=== PATIENT | female | born 1975 | race Caucasian/White ===

== ENCOUNTER 2016-09-24 21:39 | Emergency (ER) | payer SELFPAY ==
[2016-09-24 22:05] VITALS: BP 116/76
--- NOTE | 2016-09-24 22:43 | UC ---
Dane Villa Rebecca, scribed for Casimiro Dowd MD on 09/24/16 at 2207 . Upper Extremity HPI - HPI Summary HPI Summary: Pt is a 40 y/o F who presents to [facility] c/o bilateral hand pain and swelling s/p injury 2 days ago. While at work at the [employer] a piece of exercise equipment fell on her L wrist and R index finger, crushing them. Pain began immediately after injury and is currently severe, ranked 8/10. Additionally notes numbness in the L hand. Sx aggravated by use, alleviated by nothing. Denies elbow, hip and knee pain. Is not on a blood thinner. - History of Current Complaint Chief Complaint: UCUpperExtremity Stated Complaint: BILATERAL HAND INJURIES (WC) Time Seen by Provider: 09/24/16 21:53 Hx Obtained From: Patient Hx Last Menstrual Period: 09/15/16 Onset/Duration: Lasting Days - 2 days, Still Present Severity Currently: Severe Pain Intensity: 8 Pain Scale Used: 0-10 Numeric Location Of Pain: Is Discrete @ - Bilateral wrist Alleviating Factor(s): Nothing Associated Signs And Symptoms: Positive: Swelling, Numbness/Tingling - Allergies/Home Medications Allergies/Adverse Reactions: Allergies Allergy/AdvReac Type Severity Reaction Status Date / Time Fish Allergy Allergy Severe Swelling Verified 09/24/16 21:53 Of Face,Lips,& Throat Latex Allergy Intermediate Hives Verified 09/24/16 21:53 Shellfish Allergy Allergy Intermediate Hives Verified 09/24/16 21:53 seafood Allergy Hives Uncoded 09/24/16 21:53 Home Medications: Home Medications Amoxicillin PO (*) [Amoxicillin 500 MG CAP*] 500 mg PO DAILY 09/24/16 [History Confirmed 09/24/16] PMH/Surg Hx/FS Hx/Imm Hx Previously Healthy: Yes - Surgical History Surgical History: Yes Surgery Procedure, Year, and Place: GALLSTONES REMOVED 2004, TUBAL , OVARIAN CYST REMOVED, LOSS OF . - Family History Known Family History: Positive: Diabetes, Other - breast and lung CA - Social History Alcohol Use: None Substance Use Type: None Smoking Status (MU): Never Smoked Tobacco - Immunization History Most Recent Influenza Vaccination: not this season Most Recent Tetanus Shot: unknown Review of Systems Constitutional: Negative Skin: Negative Eyes: Negative ENT: Negative Respiratory: Negative Cardiovascular: Negative Gastrointestinal: Negative Genitourinary: Negative Motor: Negative Neurovascular: Negative Musculoskeletal: Arthralgia - See Comments Neurological: Numbness - See comments Psychological: Negative All Other Systems Reviewed And Are Negative: Yes - Comments Additional Review of Systems Comments: POSITIVE: Bilateral hand pain and swelling; numbness in the L hand. Sx aggravated by use, alleviated by nothing. NEGATIVE: Elbow, hip and knee pain. Physical Exam Triage Information Reviewed: Yes Vital Signs: Initial Vital Signs Temp 99.2 F 09/24/16 21:48 Pulse 79 09/24/16 21:48 Resp 16 09/24/16 21:48 BP 116/76 09/24/16 21:48 Pulse Ox 100 09/24/16 21:48 Vital Signs Reviewed: Yes - Additional Comments The patient is well-nourished in no acute distress and in no acute pain. The skin is warm and dry and skin color reflects adequate perfusion. Respiratory: Chest is non-tender. Lungs are clear to auscultation and breath sounds are symmetrical and equal. Cardiovascular: Hear is regular rate and rhythm. There is no murmur or rub auscultated. There is no peripheral edema and pulses are symmetrical and equal. Musculoskeletal: The L radius hurts. There is ecchymosis and point tenderness at the PIP joint of the R hand with FROM. There is no laxity of her PIP joint. COllateral ligaments exact. Able to flex and extend. Skin is intact. Good capillary refill. Good pulses. Neurological: Patient is alert and oriented to person, place and time. The patient has symmetrical motor strength in all four extremities. Cranial nerves are grossly intact. Deep tendon reflexes are symmetrical and equal in all four extremities. Psychiatric: The patient has an appropriate affect and does not exhibit any anxiety or depression. Diagnostics - Radiology Right Hand XR Xray Interpretation: No Acute Changes - No obvious fracture Radiology Interpretation Completed By: ED Physician Wrist XR Xray Interpretation: No Acute Changes - No obvious fracture Radiology Interpretation Completed By: ED Physician Upper Extremity Course/Dx - Course Course Of Treatment: Pt is a 40 y/o F who presents to [facility] c/o bilateral hand pain and swelling s/p injury 2 days ago. While at work at the [employer] a piece of exercise equipment fell on her L wrist and R index finger, crushing them. Pain began immediately after injury and is currently severe, ranked 8/10. Additionally notes numbness in the L hand. Sx aggravated by use. Denies elbow, hip and knee pain. Is not on a blood thinner. Right hand and L wrist XR reveal no obvious fracture. She will be D/C to home with Dx of Contusion, left wrist and sprain, right index finger. Put an alumafoam splint on the right index finger and she is neurovascular intact. She understands and agrees. - Differential Dx/Diagnosis Differential Diagnosis/HQI/PQRI: Contusion, Fracture (Closed), Hematoma Provider Diagnoses: Contusion, left wrist. Sprain, right index finger Discharge - Discharge Plan Condition: Stable Disposition: HOME Patient Education Materials: Contusion in Adults (ED), Finger Sprain (ED) Forms: *Work Release Referrals: Vince Wray MD [Primary Care Provider] - 3 Days The documentation as recorded by the Dane gutierrez Rebecca accurately reflects the service I personally performed and the decisions made by me, Casimiro Dowd MD.
--- NOTE | 2016-09-25 07:30 | RAD ---
INDICATION: Left wrist injury. TECHNIQUE: 3 views of the left wrist were obtained. FINDINGS: No fracture is seen. Joint spaces appear maintained. IMPRESSION: NO EVIDENCE FOR FRACTURE.
--- NOTE | 2016-09-25 07:33 | RAD ---
INDICATION: Right hand injury. TECHNIQUE: 4 views of the right hand were obtained. FINDINGS: The bones are in normal alignment. No fracture is seen. Joint spaces appear maintained. IMPRESSION: NO EVIDENCE FOR FRACTURE.
== END 2016-09-24 22:41 | disposition home or self-care (01) ==
LOC: UCCORT 21:39
DX: S63.610A Unspecified sprain of right index finger, initial encounter (principal); S60.212A Contusion of left wrist, initial encounter; W23.1XXA Caught, crushed, jammed, or pinched between stationary objects, initial encounter; Z91.040 Latex allergy status; Z91.013 Allergy to seafood
CPT/HCPCS: 99212; G0463

== ENCOUNTER 2017-04-16 18:57 | Emergency (ER) | payer OTHER ==
[2017-04-16 20:21] VITALS: BP 114/67
--- NOTE | 2017-04-16 20:59 | UC ---
Nausea/Vomiting/Diarrhea HPI - HPI Summary HPI Summary: Pt present with 3 days of intermittent n/v/d. Pt states has lower abd cramping improved with BM. No blood, black stools Pt with fevers responsive to APAP - last dose 3am. vomiting x 1 today + fluids po little solids + sick contact with same no dyuria, hematuria. mild GARCÍA Pt states today feeling better than yesterday Pt's medications reviewed this visit - History of Current Complaint Chief Complaint: UCAbdominalPain Stated Complaint: VOMITING, ACHES, DIARRHEA Time Seen by Provider: 04/16/17 20:23 Hx Obtained From: Patient, Family/Terrazzo Roller Hx Last Menstrual Period: 04/13/17 Onset/Duration: Gradual Onset Pain Intensity: 7 Location: Diffuse Character: Cramping Aggravating Factor(s): Food Alleviating Factor(s): OTC Analgesics Nausea/Vomiting Presence: Nauseated, Vomiting - Allergies/Home Medications Allergies/Adverse Reactions: Allergies Allergy/AdvReac Type Severity Reaction Status Date / Time latex Allergy Intermediate Hives Verified 04/16/17 20:03 fish Allergy Intermediate Swelling Uncoded 04/16/17 20:03 Of Face,Lips,& Throat seafood Allergy Hives Uncoded 04/16/17 20:03 shellfish Allergy Hives Uncoded 04/16/17 20:03 Home Medications: Home Medications B12 2,500 mcg PO SEE INSTRUCTIONS 04/16/17 [History Confirmed 04/16/17] Coconut Oil [Coconut Oil Organic] 1,000 mg PO SEE INSTRUCTIONS 04/16/17 [ History Confirmed 04/16/17] Hair,Skin,Nails 1 dose PO SEE INSTRUCTIONS 04/16/17 [History Confirmed 04/16/17] Ibuprofen TAB* [Motrin TAB* 400 MG] 400 mg PO Q12H PRN 04/16/17 [History Confirmed 04/16/17] Lysine,Vit C,Echinacea,Licoric 1 dose PO SEE INSTRUCTIONS 04/16/17 [History Confirmed 04/16/17] Tylenol Cold And Flu 1 dose PO SEE INSTRUCTIONS PRN 04/16/17 [History Confirmed 04/16/17] PMH/Surg Hx/FS Hx/Imm Hx Previously Healthy: Yes - Surgical History Surgical History: Yes Surgery Procedure, Year, and Place: GALLSTONES REMOVED 2004, TUBAL , OVARIAN CYST REMOVED, LOSS OF . - Family History Known Family History: Positive: Diabetes, Other - breast and lung CA - Social History Occupation: Employed Full-time Lives: With Family Alcohol Use: None Substance Use Type: None Smoking Status (MU): Never Smoked Tobacco - Immunization History Most Recent Influenza Vaccination: not this season Most Recent Tetanus Shot: unknown Review of Systems Constitutional: Fever, Fatigue Skin: Negative Eyes: Negative ENT: Negative Respiratory: Negative Cardiovascular: Negative Gastrointestinal: Abdominal Pain, Vomiting, Diarrhea, Nausea Genitourinary: Negative Motor: Negative Neurovascular: Negative Musculoskeletal: Negative Neurological: Negative Psychological: Negative All Other Systems Reviewed And Are Negative: Yes Physical Exam Triage Information Reviewed: Yes Appearance: Well-Appearing, No Pain Distress, Well-Nourished, Other: - tired appearin, no pain Vital Signs: Initial Vital Signs Temp 99.4 F 04/16/17 20:11 Pulse 78 04/16/17 20:11 Resp 18 04/16/17 20:11 BP 114/67 04/16/17 20:11 Pulse Ox 100 04/16/17 20:11 Eye Exam: Normal Eyes: Positive: Conjunctiva Clear ENT: Positive: Hearing grossly normal, Other - TM x clear mmmoist, lips pasty Dental Exam: Normal Neck exam: Normal Neck: Positive: Supple, Nontender Respiratory Exam: Normal Respiratory: Positive: Chest non-tender, Lungs clear, Normal breath sounds, No respiratory distress Cardiovascular Exam: Normal Cardiovascular: Positive: RRR, No Murmur Abdomen Description: Positive: No Organomegaly, Soft. Negative: Nontender - mild diffuse, no guarding, no rebound, Distended, Guarding Musculoskeletal Exam: Normal Neurological Exam: Normal Psychological Exam: Normal Skin Exam: Normal Naus/Vom/Diarrhea Course/Dx - Course Course Of Treatment: Pt with 4 days n/v/d, crampy abd pain. Pt with stable vs, mild dehdrted exam, mild abd pain. will check urine for ketone, check flu. supportive care. d/w pt s/s for return, ED eval. recommend clears to bland. pt comfortable and in agreement plan - Differential Dx/Diagnosis Provider Diagnoses: vomiting and diarrhea Condition At Discharge: Stable Discharge - Discharge Plan Condition: Stable Disposition: HOME Patient Education Materials: Acute Nausea and Vomiting (ED), Acute Diarrhea (ED ) Forms: *Gen. Provider Communication, *Work Release Referrals: Vince Wray MD [Primary Care Provider] - Additional Instructions: - Okay to alternate ibuprofen (Advil, Motrin) and Tylenol every 3 hours for pain or fever. Take with food. Do NOT take for more than 4-5 days. - Stay well hydrate. Drink plenty of non alcoholic, non caffeinated beverages. For the first 6 hours, eat and drink clears (water, ashley tess, soup broth, jello, popsicles, Gatorade). If you tolerate this okay, add bland foods such as dry toast, scrambled eggs, crackers. Wait until you are feeling better for 24 hours before eating spicy food, acidic food, tomato based food, fried food. - These infections are spread by oral secretions. Do not share eating or drinking utensils. Frequent hand washing is important. Clean items that may get your secretions on them such as cell phones, ipads, computer mouse, television remotes -Get plenty of restful sleep - If you develop increasing abdominal pain, uncontrolled vomiting or fever, or ANY other questions or concerns - contact your doctor, go to the emergency department or return with questions or concerns
[2017-04-16] MEDS ORDERED: Acetaminophen TAB* 325 MG PO ONE (21:17)
== END 2017-04-16 21:32 | disposition home or self-care (01) ==
LOC: UCCORT 18:57
DX: R11.2 Nausea with vomiting, unspecified (principal); R19.7 Diarrhea, unspecified; R50.9 Fever, unspecified; R53.83 Other fatigue; R10.84 Generalized abdominal pain; Z91.040 Latex allergy status; Z91.013 Allergy to seafood
CPT/HCPCS: 81003; 87502; 99212; A9270-GY; G0463

== ENCOUNTER 2017-05-10 13:33 | Emergency (ER) | payer OTHER ==
[2017-05-10 14:04] VITALS: BP 125/78
--- NOTE | 2017-05-10 14:36 | UC ---
Abdominal Pain Female HPI - HPI Summary HPI Summary: 41 yo female wtih periumbilical adb painlunch today. pain and vomiting immediately after eating n/v x 2 no f/c also injured right pelvis and foot 2 days ago twisted ankle and fell - History of Current Complaint Chief Complaint: UCGI Stated Complaint: VOMITING,ABD PAIN Time Seen by Provider: 05/10/17 14:13 Hx Obtained From: Patient Hx Last Menstrual Period: 05/09/17 Onset/Duration: Gradual Onset, Lasting Hours, Lasting Days Severity Initially: Severe Severity Currently: Moderate Pain Intensity: 8 Pain Scale Used: 0-10 Numeric Location: Other - sudarshan umbilical Aggravating Factor(s): Food Alleviating Factor(s): Vomiting Associated Signs and Symptoms: Positive: Nausea, Vomiting Allergies/Adverse Reactions: Allergies Allergy/AdvReac Type Severity Reaction Status Date / Time latex Allergy Intermediate Hives Verified 05/10/17 14:00 fish Allergy Intermediate Swelling Uncoded 05/10/17 14:00 Of Face,Lips,& Throat seafood Allergy Hives Uncoded 05/10/17 14:00 shellfish Allergy Hives Uncoded 05/10/17 14:00 PMH/Surg Hx/FS Hx/Imm Hx Previously Healthy: Yes - Surgical History Surgical History: Yes Surgery Procedure, Year, and Place: GALLSTONES REMOVED 2004, TUBAL , OVARIAN CYST REMOVED, LOSS OF . - Family History Known Family History: Positive: Diabetes, Other - breast and lung CA - Social History Alcohol Use: None Substance Use Type: None Smoking Status (MU): Never Smoked Tobacco - Immunization History Most Recent Influenza Vaccination: not this season Most Recent Tetanus Shot: unknown Review of Systems Constitutional: Negative Skin: Negative Eyes: Negative ENT: Negative Respiratory: Negative Cardiovascular: Negative Gastrointestinal: Abdominal Pain, Vomiting, Nausea Genitourinary: Negative Motor: Negative Neurovascular: Negative Musculoskeletal: Arthralgia Neurological: Negative Psychological: Negative Is Patient Immunocompromised?: No All Other Systems Reviewed And Are Negative: Yes Physical Exam Triage Information Reviewed: Yes Appearance: Well-Appearing, No Pain Distress, Well-Nourished Vital Signs: Initial Vital Signs Temp 98 F 05/10/17 13:55 Pulse 87 05/10/17 13:55 Resp 16 05/10/17 13:55 BP 125/78 05/10/17 13:55 Pulse Ox 100 05/10/17 13:55 Vital Signs Reviewed: Yes Eyes: Positive: Conjunctiva Clear ENT: Positive: Pharyngeal erythema, Nasal congestion, Nasal drainage, Muffled voice, Uvula midline Neck exam: Normal Neck: Positive: Supple, Nontender Respiratory: Positive: Lungs clear, Normal breath sounds, No respiratory distress, No accessory muscle use Cardiovascular: Positive: RRR, No Murmur Abdomen Description: Positive: No Organomegaly, Soft. Negative: Nontender - tender epigastrium, CVA Tenderness (R), CVA Tenderness (L) Bowel Sounds: Positive: Present Musculoskeletal: Positive: ROM Intact, No Edema Neurological: Positive: Alert Psychological Exam: Normal Skin Exam: Normal Diagnostics - Radiology No standard instances Xray Interpretation: No Acute Changes - right foot and pelvis (-) Radiology Interpretation Completed By: Radiologist Abd Pain Female Course/Dx - Differential Dx/Diagnosis Provider Diagnoses: gastritis. right foot sprain. right pelvis contusion Discharge - Discharge Plan Condition: Stable Disposition: HOME Referrals: Vince Wray MD [Primary Care Provider] -
--- NOTE | 2017-05-10 15:03 | RAD ---
HISTORY: right foot injury COMPARISONS: July 12, 2015 VIEWS: 3, Frontal, lateral, and oblique views of the right foot FINDINGS: BONE DENSITY: Normal. BONES: There is no displaced fracture. JOINTS: There is no arthropathy. ALIGNMENT: There is no dislocation. SOFT TISSUES: Unremarkable. OTHER FINDINGS: None. IMPRESSION: NO ACUTE OSSEOUS INJURY. IF SYMPTOMS PERSIST, RECOMMEND REPEAT IMAGING.
--- NOTE | 2017-05-10 15:05 | RAD ---
HISTORY: Right pelvic pain, injury COMPARISONS: None VIEWS: 1, Single frontal view of the pelvis FINDINGS: BONE DENSITY: Normal. BONES: There is no displaced fracture. JOINTS: There is no arthropathy. ALIGNMENT: There is no dislocation. SOFT TISSUES: Unremarkable. OTHER FINDINGS: Surgical clips are noted in the pelvis.. IMPRESSION: NO ACUTE OSSEOUS INJURY. IF SYMPTOMS PERSIST, RECOMMEND REPEAT IMAGING.
[2017-05-10] MEDS ORDERED: Ondansetron ODT TAB* 4 MG PO ONE (15:12)
== END 2017-05-10 15:33 | disposition home or self-care (01) ==
LOC: UCCORT 13:33
DX: K29.70 Gastritis, unspecified, without bleeding (principal); S93.601A Unspecified sprain of right foot, initial encounter; S30.0XXA Contusion of lower back and pelvis, initial encounter; W19.XXXA Unspecified fall, initial encounter; Y93.9 Activity, unspecified; Y92.9 Unspecified place or not applicable; Z91.040 Latex allergy status; Z91.013 Allergy to seafood
CPT/HCPCS: 72170; 99212; A9270-GY; G0463

== ENCOUNTER 2017-06-22 17:51 | Emergency (ER) | payer OTHER ==
[2017-06-22] MEDS ORDERED: methylPREDNISolone 125 MG* 2 ML VIAL ONE (18:01)
[2017-06-22 18:03] VITALS: BP 115/74
[2017-06-22] MEDS ORDERED: methylPREDNISolone 125 MG* 2 ML VIAL IM ONE (18:04)
--- NOTE | 2017-06-22 18:29 | UC ---
Allergic Reaction HPI - HPI Summary HPI Summary: Pr presents with c/o "scratchy throat" after spilling shellfish based soup on her shirt ~ 3 hours ago. 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 Pt took 25 mg PO benadryl two hours prior ot arrival. Pt is sleepy but arousable during exam. Denies difficulty breathing, lip swelling or SOB. - History of Current Complaint Chief Complaint: UCAllergicReaction Stated Complaint: POSSIBLE ALLERGIC REACTION Time Seen by Provider: 06/22/17 17:52 Hx Obtained From: Patient Hx Last Menstrual Period: 05/09/17 ?: No Onset/Duration: Gradual Onset Severity Initially: Mild Severity Currently: Mild Pain Intensity: 0 Character: Pruritus Alleviating Factor(s): Antihistamines Associated Signs And Symptoms: Positive: Other: - throat irritation - Related Hx Possible Reaction To: Food - Allergies/Home Medications Allergies/Adverse Reactions: Allergies Allergy/AdvReac Type Severity Reaction Status Date / Time latex Allergy Intermediate Hives Verified 06/22/17 18:03 fish Allergy Intermediate Swelling Uncoded 06/22/17 18:03 Of Face,Lips,& Throat seafood Allergy Hives Uncoded 06/22/17 18:03 shellfish Allergy Hives Uncoded 06/22/17 18:03 Home Medications: Home Medications diPHENhydraMINE PO* [Benadryl PO 25 MG TAB*] 25 mg PO Q6H PRN 06/22/17 [History Confirmed 06/22/17] PMH/Surg Hx/FS Hx/Imm Hx Previously Healthy: Yes - Surgical History Surgical History: Yes Surgery Procedure, Year, and Place: GALLSTONES REMOVED 2004, TUBAL , OVARIAN CYST REMOVED, LOSS OF . - Family History Known Family History: Positive: Diabetes, Other - breast and lung CA - Social History Occupation: Employed Full-time Lives: With Family Alcohol Use: None Substance Use Type: None Smoking Status (MU): Never Smoked Tobacco Have You Smoked in the Last Year: No - Immunization History Most Recent Influenza Vaccination: not this season Most Recent Tetanus Shot: unknown Review of Systems Constitutional: Negative Skin: Rash Eyes: Negative ENT: Sore Throat Respiratory: Negative Cardiovascular: Negative Gastrointestinal: Negative Genitourinary: Negative Motor: Negative Neurovascular: Negative Musculoskeletal: Negative Neurological: Negative Psychological: Negative Is Patient Immunocompromised?: No All Other Systems Reviewed And Are Negative: Yes Physical Exam Triage Information Reviewed: Yes Appearance: Well-Appearing, Other: - sleepy during exam Vital Signs: Initial Vital Signs Temp 98.1 F 06/22/17 17:57 Pulse 82 06/22/17 17:57 Resp 15 06/22/17 17:57 BP 115/74 06/22/17 17:57 Pulse Ox 100 06/22/17 17:57 Vital Signs Reviewed: Yes Eye Exam: Normal ENT Exam: Normal ENT: Positive: Pharynx normal, Other - nho angioedema noted Neck exam: Normal Respiratory Exam: Normal Respiratory: Positive: Lungs clear Cardiovascular Exam: Normal Musculoskeletal Exam: Normal Neurological Exam: Normal Psychological Exam: Normal Skin Exam: Normal Allergic Reaction Course/Dx - Differential Dx/Diagnosis Differential Diagnosis/HQI/PQRI: Anaphylaxis, Local Allergic Reaction, Urticaria Provider Diagnoses: generalized allergic reaction Discharge - Sign-Out/Discharge Documenting (check all that apply): Discharge - Discharge Plan Condition: Stable Disposition: HOME Patient Education Materials: General Allergic Reaction (ED) Referrals: Vince Wray MD [Primary Care Provider] - - Billing Disposition and Condition Condition: STABLE Disposition: HOME
== END 2017-06-22 18:50 | disposition home or self-care (01) ==
LOC: UCCORT 17:51
DX: T78.40XA Allergy, unspecified, initial encounter (principal)
CPT/HCPCS: 96372; 99211; G0463; J2930

== ENCOUNTER 2018-03-20 13:57 | Emergency (ER) | payer SELFPAY ==
[2018-03-20 14:57] VITALS: BP 116/73
--- NOTE | 2018-03-20 15:11 | UC ---
Throat Pain/Nasal Lito HPI - HPI Summary HPI Summary: Pt with sinus congestiion x 5 days. Pt has been using mucinex and nasal sterid. Pt has now develop epistaxis x 4.No fever, chills No ear pain. + PND. facial pressure, dental pressure. no cough, sob, cp Pt's medications reviewed this visit. - History of Current Complaint Chief Complaint: UCRespiratory Stated Complaint: SINUSES Time Seen by Provider: 03/20/18 14:58 Hx Obtained From: Patient Hx Last Menstrual Period: 03/08/18 Pain Intensity: 0 - Allergies/Home Medications Allergies/Adverse Reactions: Allergies Allergy/AdvReac Type Severity Reaction Status Date / Time latex Allergy Intermediate Hives Verified 03/20/18 14:47 fish Allergy Intermediate Swelling Uncoded 03/20/18 14:47 Of Face,Lips,& Throat seafood Allergy Hives Uncoded 03/20/18 14:47 shellfish Allergy Hives Uncoded 03/20/18 14:47 Home Medications: Home Medications Organic Vitamins 1 tab PO 03/20/18 [History] Triamcinolone NASAL SPRAY* [Nasacort AQ Nasal [place]*] 1 puff NASAL 03/20/18 [ History] PMH/Surg Hx/FS Hx/Imm Hx Previously Healthy: Yes - Surgical History Surgical History: Yes Surgery Procedure, Year, and Place: GALLSTONES REMOVED 2004, TUBAL , OVARIAN CYST REMOVED, LOSS OF . - Family History Known Family History: Positive: Diabetes, Other - breast and lung CA, Non- Contributory - Social History Alcohol Use: None Substance Use Type: None Smoking Status (MU): Never Smoked Tobacco Have You Smoked in the Last Year: No - Immunization History Most Recent Influenza Vaccination: not this season Most Recent Tetanus Shot: unknown Review of Systems All Other Systems Reviewed And Are Negative: Yes Constitutional: Positive: Negative, Fatigue ENT: Positive: Nasal Discharge, Sinus Congestion Physical Exam - Summary Physical Exam Summary: Vital Signs Reviewed: Yes A+Ox3, no distress Eyes: Conjunctiva Clear, JESSICA. EOM intact and full ENT: Hearing grossly normal scant fluid right TM, no erythema left TM wnl turbinates inflammed and boggy. + dried blood right septum. + boggy + PND + TTP right max sinuses, , mmoist, uvula midline, no exudate, no erythema Neck: Positive: Supple Respiratory: Positive: No respiratory distress, No accessory muscle use + CTA throughout no w/r Cardiovascular: RRR nl s1, s2 no m/r CBT <2 sec abd soft + BS nt/nd no guarding, no distension Musculoskeletal Exam: MORE x 4 without difficulty Strength Intact, ROM Intact Neurological: Positive: Alert, + sensation throughout Psychological: Positive: Normal Response To Family Skin: Positive: no rash, no ecchymosis Triage Information Reviewed: Yes Vital Signs: Initial Vital Signs Temp 99.2 F 03/20/18 14:51 Pulse 80 03/20/18 14:51 Resp 18 03/20/18 14:51 BP 116/73 03/20/18 14:51 Pulse Ox 100 03/20/18 14:51 Throat Pain/Nasal Course/Dx - Course Course Of Treatment: sinus pressure x 5 days, max pressure pain and green secretions with intermittend epistaxis. on exam, VSS. exam c/w rhinosinusitis. hydrate. abx. motrin/apap. humidify air. recommend d/c steroid nasal spray - saline ok. return precautions - Differential Dx/Diagnosis Provider Diagnosis: Acute rhinosinusitis Discharge - Sign-Out/Discharge Documenting (check all that apply): Patient Departure All imaging exams completed and their final reports reviewed: No Studies - Discharge Plan Condition: Stable Disposition: HOME Prescriptions: Amoxicillin PO (*) [Amoxicillin 500 MG CAP*] 500 mg PO TID #30 cap Fluconazole [Diflucan 150 MG (NF)] 150 mg PO ONCE PRN #1 tab PRN Reason: vaginal yeast infection Patient Education Materials: Rhinosinusitis (ED) Forms: *Work Release Referrals: Tessa Boss MD [Primary Care Provider] - Additional Instructions: - Stay well hydrated. Drink plenty of non-alcoholic, non-caffinated beverages. - Alternate ibuprofen (Advil, Motrin) 600mg and Tylenol every 3 hours for pain or fever. Take with food. Do NOT take for more than 4-5 days. - These infections are spread by secretions - do NOT share eating or drinking utensils - clean items you share with other people such as cell phones, computer mouse, TV remote, computer tablets,etc. Once you have been antibiotics for 2 days, change your toothbrush and your pillowcase. - get plenty of restful sleep - humidify the air in the room where you sleep - boil water, run a hot steam shower, vaporizer, cups of water by heat register - okay to take over the counter decongestant and cough medication - stop using nasal spray as this is drying your nasal passages and contributing to your nosebleeds - you have been given a 1 time dose for diflucan - okay to use if you develop a vaginal yeast infection - contact your doctor or return with questions or concerns - Billing Disposition and Condition Condition: STABLE Disposition: Home
== END 2018-03-20 15:34 | disposition home or self-care (01) ==
LOC: UCCORT 13:57
DX: J01.90 Acute sinusitis, unspecified (principal); Z91.040 Latex allergy status; Z91.013 Allergy to seafood
CPT/HCPCS: 99211; G0463

== ENCOUNTER 2018-04-11 21:15 | Emergency (ER) | payer OTHER ==
[2018-04-11 21:37] VITALS: BP 132/77
--- NOTE | 2018-04-11 21:44 | ED ---
Upper Extremity Pain - HPI Summary HPI Summary: 42 yr old with pain in the right shoulder for about a week. 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 Repeated movements, and this occurred on the Mar, and the following day she had increased pain in the right shoulder and feels a pull in the supraspinatus muscle area right shoulder. Pain is moderate, and worse with attempted overhead movements. She has limited forward flexion and abduction of the right shoulder. No weakness or numbness in the right hand. - History of Current Complaint Chief Complaint: UCUpperExtremity Stated Complaint: RIGHT SHOULDER INJURY Time Seen by Provider: 04/11/18 21:29 Hx Last Menstrual Period: 04/04/17 - Allergies/Home Medications Allergies/Adverse Reactions: Allergies Allergy/AdvReac Type Severity Reaction Status Date / Time latex Allergy Intermediate Hives Verified 04/11/18 21:27 fish Allergy Intermediate Swelling Uncoded 04/11/18 21:27 Of Face,Lips,& Throat seafood Allergy Hives Uncoded 04/11/18 21:27 shellfish Allergy Hives Uncoded 04/11/18 21:27 Home Medications: Home Medications Loratadine 10 mg PO DAILY PRN 04/11/18 [History Confirmed 04/11/18] PMH/Surg Hx/FS Hx/Imm Hx - Surgical History Surgery Procedure, Year, and Place: GALLSTONES REMOVED 2004, TUBAL , OVARIAN CYST REMOVED, LOSS OF . Infectious Disease History: No Infectious Disease History: Denies: Traveled Outside the [place] in Last 30 Days - Family History Known Family History: Positive: Diabetes, Other - breast and lung CA, Non- Contributory - Social History Alcohol Use: None Substance Use Type: Reports: None Smoking Status (MU): Never Smoked Tobacco Have You Smoked in the Last Year: No Review of Systems Constitutional: Negative Positive: Other - right shoulder pain All Other Systems Reviewed And Are Negative: Yes Physical Exam Triage Information Reviewed: Yes Vital Signs On Initial Exam: Initial Vitals Temp Pulse Resp BP Pulse Ox 98.4 F 75 16 132/77 100 04/11/18 21:31 04/11/18 21:31 04/11/18 21:31 04/11/18 21:31 04/11/18 21:31 Vital Signs Reviewed: Yes Appearance: Positive: Well-Appearing, No Pain Distress Skin: Positive: Warm, Skin Color Reflects Adequate Perfusion Head/Face: Positive: Normal Head/Face Inspection Eyes: Positive: EOMI ENT: Positive: Normal ENT inspection Neck: Positive: Supple Respiratory/Lung Sounds: Positive: Other - normal breath sounds. Cardiovascular: Positive: Pulses are Symmetrical in both Upper and Lower Extremities Abdomen Description: Negative: Distended Musculoskeletal: Positive: Other - limited abduction and forward flexion right shoulder with increased pain with these movements. No STS or swelling, or bruising or increased warmth to the right shoulder. No gross deformity. Neurological: Positive: Sensory/Motor Intact, Alert, Oriented to Person Place, Time, CN Intact II-III, Other - neuro vasc intact right hand Psychiatric: Positive: Normal Diagnostics - Vital Signs Vital Signs Temp Pulse Resp BP Pulse Ox 04/11/18 21:31 98.4 F 75 16 132/77 100 - Laboratory Lab Statement: Any lab studies that have been ordered have been reviewed, and results considered in the medical decision making process. - Radiology right shoulder Radiology Interpretation Completed By: ED Physician - nad Course/Dx - Course Course Of Treatment: 42 yr old with likely supraspinatus injury, tendon injury. FU with orthopedic surgery. - Diagnoses Provider Diagnoses: Injury of tendon of rotator cuff Discharge - Sign-Out/Discharge Documenting (check all that apply): Patient Departure All imaging exams completed and their final reports reviewed: No - Discharge Plan Condition: Good Disposition: HOME Patient Education Materials: Rotator Cuff Injury (ED) Forms: *Work Release Referrals: Tessa Boss MD [Primary Care Provider] - - Billing Disposition and Condition Condition: GOOD Disposition: Home
--- NOTE | 2018-04-12 12:44 | UC ---
- Progress Note Progress Note: xray negative. c/w provider assessment "IMPRESSION: NO EVIDENCE OF FRACTURE." Course/Dx - Diagnoses Provider Diagnoses: Injury of tendon of rotator cuff Discharge - Sign-Out/Discharge Documenting (check all that apply): Post-Discharge Follow Up All imaging exams completed and their final reports reviewed: Yes - Discharge Plan Condition: Good Disposition: HOME Patient Education Materials: Rotator Cuff Injury (ED) Forms: *Work Release Referrals: Lopez Larson MD [Medical Doctor] - 2 Days Tessa Boss MD [Primary Care Provider] - - Billing Disposition and Condition Condition: GOOD Disposition: Home
== END 2018-04-11 21:58 | disposition home or self-care (01) ==
LOC: UCCORT 21:15
DX: S46.001A Unspecified injury of muscle(s) and tendon(s) of the rotator cuff of right shoulder, initial encounter (principal); Z91.040 Latex allergy status; Z91.013 Allergy to seafood; X50.0XXA Overexertion from strenuous movement or load, initial encounter; Y93.89 Activity, other specified; Y92.9 Unspecified place or not applicable
CPT/HCPCS: 99211; G0463

== ENCOUNTER 2018-12-29 11:48 | Emergency (ER) | payer OTHER ==
[2018-12-29 13:47] VITALS: BP 110/72
--- NOTE | 2018-12-29 14:50 | ED ---
Respiratory - HPI Summary HPI Summary: 43 yr old with the complaint of sore throat, runny nose, cough, NVD. She got the flu shot last week, and she feels it has given her the flu. No syncope. T max 100. She has had chills. NO abdominal pain. SHe is requesting note for work. - History of Current Complaint Chief Complaint: UCGeneralIllness Stated Complaint: VOMITING DIARRHEA ACHY CHILLS EARS SORE THROAT Time Seen by Provider: 12/29/18 14:16 Pain Intensity: 8 - Allergy/Home Medications Allergies/Adverse Reactions: Allergies Allergy/AdvReac Type Severity Reaction Status Date / Time latex Allergy Intermediate Hives Verified 12/29/18 13:47 fish Allergy Intermediate Swelling Uncoded 12/29/18 13:47 Of Face,Lips,& Throat seafood Allergy Hives Uncoded 12/29/18 13:47 shellfish Allergy Hives Uncoded 12/29/18 13:47 Home Medications: Home Medications NK [No Home Medications Reported] 12/29/18 [History Confirmed 12/29/18] PMH/Surg Hx/FS Hx/Imm Hx - Surgical History Surgery Procedure, Year, and Place: GALLSTONES REMOVED 2004, TUBAL , OVARIAN CYST REMOVED, LOSS OF . Infectious Disease History: No Infectious Disease History: Denies: Traveled Outside the [place] in Last 30 Days - Family History Known Family History: Positive: Diabetes, Other - breast and lung CA, Non- Contributory - Social History Alcohol Use: Occasionally Substance Use Type: Reports: None Smoking Status (MU): Never Smoked Tobacco Have You Smoked in the Last Year: No Review of Systems Positive: Chills Positive: Sore Throat, Ear Ache, Nasal Discharge Positive: Cough Positive: Vomiting, Diarrhea, Nausea Positive: Myalgia All Other Systems Reviewed And Are Negative: Yes Physical Exam Triage Information Reviewed: Yes Vital Signs On Initial Exam: Initial Vitals Temp Pulse Resp BP Pulse Ox 99.2 F 89 16 110/72 98 12/29/18 13:38 12/29/18 13:38 12/29/18 13:38 12/29/18 13:38 12/29/18 13:38 Vital Signs Reviewed: Yes Appearance: Positive: Well-Appearing, No Pain Distress Skin: Positive: Warm, Skin Color Reflects Adequate Perfusion Head/Face: Positive: Normal Head/Face Inspection Eyes: Positive: EOMI ENT: Positive: Pharynx normal, Nasal congestion, TMs normal Neck: Positive: Nontender Respiratory/Lung Sounds: Positive: Clear to Auscultation, Breath Sounds Present Cardiovascular: Positive: RRR. Negative: Murmur Abdomen Description: Negative: Distended Musculoskeletal: Positive: Strength/ROM Intact Neurological: Positive: Sensory/Motor Intact, Alert, Oriented to Person Place, Time, CN Intact II-III, Normal Gait, Speech Normal Psychiatric: Positive: Normal Diagnostics - Vital Signs Vital Signs Temp Pulse Resp BP Pulse Ox 12/29/18 13:38 99.2 F 89 16 110/72 98 - Laboratory Lab Statement: Any lab studies that have been ordered have been reviewed, and results considered in the medical decision making process. Disposition - Course Course Of Treatment: 43 yr old with URI and GI symptoms. Rapid flu neg. DC home. - Diagnoses Provider Diagnoses: Upper respiratory infection, Gastroenteritis Discharge ED - Sign-Out/Discharge Documenting (check all that apply): Patient Departure All imaging exams completed and their final reports reviewed: No Studies - Discharge Plan Condition: Good Disposition: HOME Patient Education Materials: Gastroenteritis (ED), Upper Respiratory Infection (ED) Forms: *Work Release Referrals: Tessa Boss MD [Primary Care Provider] - - Billing Disposition and Condition Condition: GOOD Disposition: Home
[2018-12-29 14:52] LABS: Influenza A Molecular NEGATIVE (Negative); Influenza B Molecular NEGATIVE (Negative)
== END 2018-12-29 15:05 | disposition home or self-care (01) ==
LOC: UCCORT 11:48
DX: J06.9 Acute upper respiratory infection, unspecified (principal); K52.9 Noninfective gastroenteritis and colitis, unspecified; Z91.040 Latex allergy status; Z91.013 Allergy to seafood
CPT/HCPCS: 99211; G0463

== ENCOUNTER 2019-02-28 14:04 | Emergency (ER) | payer OTHER ==
--- OUTSIDE RECORDS SUMMARY | 2019-02-28 15:29 | XMS REPORT | Continuity of Care Document ---
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 Tessa Boss MD, PHD Onset: 2018 Eruption Tessa Boss MD, PHD Onset: 09/24/2018 Gastro-esophageal reflux disease with Tessa Boss MD, PHD Onset: 2018 esophagitis 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 Boss MD, PHD Onset: foot Sciatica Tessa Boss MD, PHD Onset: 09/24/2018 Low back pain Tessa Boss MD, PHD Onset: 09/24/2018 Amenorrhea Tessa Boss MD, PHD Onset: 09/24/2018 Social History Type Date Description Comments Sex Unknown ETOH Use Denies alcohol use Tobacco Use Start: Unknown Patient denies history of smoking Smoking Status Reviewed: 01/13/19 Patient denies history of smoking Allergies, Adverse Reactions, Alerts Active Allergies Reaction Severity Comments Date Latex 05/20/2008 Seafood 05/20/2008 Fish 05/20/2008 Medications Active Medications SIG Qnty Indications Ordering Date Provider Clobetasol Propionate apply to affected 15gm L23.89 Karyn 01/13/2019 E area of hands and MD Tessa, 0.05% Cream forearm twice a PHD day as needed Gummies/Dha 2 tab by mouth 180units N91.1 Ursa, 01/13/2019 & Folic Acid every day MD Tessa, 0.4-32.5mg PHD Chewtabs Fluconazole 1 by mouth once 1tabs Ursa, 01/13/2019 150mg can repeat in 1 MD Tessa, Tablets week for vaginal PHD itching Keflex 1 cap by mouth 6caps Ursa, 01/12/2019 500mg Capsules twice a day - MD Tessa, start after PHD leaving urine sample please. Vitamin D 2 caps by mouth 180caps N91.1 Ursa, 09/24/2018 2000Unit every day MD Tessa, Capsules PHD Melatonin ER 1 tab by mouth at 90tabs Ursa, 09/24/2018 5mg bedtime as needed MD Tessa, Tablets ER for sleep PHD D3 Maximum Strength 1 cap by mouth 90caps G47.00 Ursa, 08/08/2018 every day with MD Tessa, 5000Unit Capsules food PHD B12 Fast Dissolve 1 tab by mouth 90tabs G47.00 Ursa, 08/08/2018 every day MD Tessa, 5000mcg Tablets PHD Dispers Nac 600 2 cap by mouth 120caps G47.00 Ursa, 08/08/2018 600mg Capsules twice a day MD Tessa, PHD Hydrocortisone apply to affected 59ml L24.0 Ursa, 08/08/2018 2.5% area twice a day MD Tessa, Lotion as needed PHD Famotidine 1 tab by mouth 60tabs K21.0 Ursa, 06/19/2018 40mg Tablets twice a day MD Tessa, before meals as PHD needed Loratadine Take One Tablet 30tabs J30.2 Ursa, 05/15/2018 10mg Tablets By Mouth Every MD Tessa, Morning PHD Cetirizine HCL 1/2-1 by mouth at 90tabs J30.2 Ursa, 05/15/2018 10mg bedtime as needed MD Tessa, Tablets PHD Nasacort Allergy 24HR 2 intranasal 10.800ml J30.2 Ursa, 09/26/2017 every day MD Tessa, 55mcg/Act Aerosol PHD Metronidazole apply to affected 45gm L71.9 Karyn, 08/29/2017 0.75% area every day as MD Tessa, Cream needed PHD One Daily Unknown Green Tea Slim o tablet twice Unknown Tablets daily History Medications Prenata 1 by mouth 90units N91.1 Tessa Boss, 09/24/2018 - 29-1mg Chewtabs every day , PHD 01/13/2019 Trazodone HCL 1-2 tab by 60tabs G47.00 Tessa Boss, 08/08/2018 - 50mg mouth sleep , PHD 09/24/2018 Tablets Bupropion 1 tab by mouth 30tabs F43.21 Tessa Boss, 08/08/2018 - Hydrochloride ER (SR) every day every , PHD 09/12/2018 morning 100mg Tablets ER 12HR Immunizations Description No Information Available Vital Signs Date Vital Result Comment 01/13/2019 4:07pm BP Systolic 126 mmHg BP Diastolic 83 mmHg Body Temperature 97.7 F Heart Rate 76 /min Respiratory Rate 16 /min Height 64 inches 5'4" Weight 136.00 lb BMI (Body Mass Index) 23.3 kg/m2 BSA (Body Surface Area) 1.66 m2 [place] body weight in kilograms 54 kg O2 % BldC Oximetry 100 % 09/24/2018 3:27pm BP Systolic 155 mmHg 130/86 retook after 10 minutes BP Diastolic 104 mmHg 130/86 retook after 10 minutes Body Temperature 98.0 F Heart Rate 90 /min Respiratory Rate 20 /min Height 64 inches 5'4" Weight 164.00 lb BMI (Body Mass Index) 28.1 kg/m2 BSA (Body Surface Area) 1.80 m2 [place] body weight in kilograms 54 kg O2 % BldC Oximetry 98 % Pain Level 0 Results Test Acquired Date Facility Test Result H/L Range Note Rapid Influenza 12/29/2018 [facility] Influenza A NEGATIVE Negative 1 A & B Molecular [phone] Molecular Influenza B Molecular NEGATIVE Negative 1 Sterile Process Tech: [id number] Procedures Date Code Description Status 08/08/2018 37191 Brief Emotional/Behav Assessment W/ Scoring Doc Per Completed [facility] Medical Devices Description No Information Available Encounters Type Date Location Provider Dx Diagnosis Office Visit 01/13/2019 Family [facility] Tessa Boss, L23.89 Allergic contact 3:45p Ion Evans MD, PHD dermatitis due to other agents N76.0 Acute vaginitis R30.0 Dysuria R35.0 Frequency of micturition Office Visit 09/24/2018 3:00p Family Medicine Tessa Boss, R21 Rash and other Ion Evans MD, PHD nonspecific skin eruption I83.002 Varicose veins of unsp lower extremity with ulcer of calf Office Visit 08/08/2018 11:45a Family Medicine Karyn, L24.0 Irritant contact Ion Zarate MD, dermatitis due to PHD detergents G47.00 Insomnia, unspecified F43.21 Adjustment disorder with depressed mood M75.01 Adhesive capsulitis of right shoulder Assessments Date Code Description Provider 01/13/2019 L23.89 Allergic contact dermatitis due to other Tessa Boss MD, PHD agents 01/13/2019 N76.0 Acute vaginitis Tessa Boss MD, PHD 01/13/2019 R30.0 Dysuria Tessa Boss MD, PHD 01/13/2019 R35.0 Frequency of micturition Tessa Boss MD, PHD 09/24/2018 R21 Rash and other nonspecific skin eruption Tessa Boss MD , PHD 09/24/2018 I83.002 Varicose veins of unspecified lower Tessa Boss MD, PHD extremity with ulcer of calf 08/08/2018 L24.0 Irritant contact dermatitis due to Tessa Boss MD, PHD detergents 08/08/2018 G47.00 Insomnia, unspecified Tessa Boss MD, PHD 08/08/2018 F43.21 Adjustment disorder with depressed mood Tessa Boss MD, PHD 08/08/2018 M75.01 Adhesive capsulitis of right shoulder Tessa Boss MD , PHD Plan of Treatment 01/13/2019 - Tessa Boss MD, PHDL23.89 Allergic contact dermatitis due to other agentsNew Medication:Clobetasol Propionate E 0.05 % - apply to affected area of hands and forearm twice a day as neededComments:Avoid any chemicals that flush or burn your skin.N76.0 Acute [id number] DysuriaFollow up:If fever after 3 days of antibiotic, if worsening symptoms call, if symptoms come back after completing antibiotics, or as needed.R35.0 Frequency of micturition Functional Status Description No Information Available Mental Status Description No Information Available Referrals Description No Information Available
--- NOTE | 2019-02-28 15:44 | UC ---
Abdominal Pain Female HPI - HPI Summary HPI Summary: 43 year old female with no PMH, no medications, presents today with ~ 24 hours of nausea, vomiting, diarrhea. Symptoms worse last night, starting to improve. Had to leave work early yesterday due to symptoms. + liquid stools last night. Last emesis ~ noon. Diffuse abdominal pain. + chills, resolving. + weakness currently, + fatigue. - History of Current Complaint Stated Complaint: VOMITTING,DIARRHEA,FEVER Time Seen by Provider: 02/28/19 15:39 Hx Obtained From: Patient Hx Last Menstrual Period: 12/22/18 ?: No Onset/Duration: Sudden Onset, Lasting Days - 1 Timing: Constant Severity Initially: Moderate Severity Currently: Moderate Pain Scale Used: 0-10 Numeric Location: Diffuse - throughout abdomen Character: Aching Associated Signs and Symptoms: Positive: Decreased Appetite, Nausea, Vomiting, Diarrhea Allergies/Adverse Reactions: Allergies Allergy/AdvReac Type Severity Reaction Status Date / Time latex Allergy Intermediate Hives Verified 02/28/19 15:35 fish Allergy Intermediate Swelling Uncoded 02/28/19 15:35 Of Face,Lips,& Throat seafood Allergy Hives Uncoded 02/28/19 15:35 shellfish Allergy Hives Uncoded 02/28/19 15:35 Home Medications: Home Medications Famotidine TAB* [Pepcid 20 MG TAB*] 20 mg PO DAILY 02/28/19 [History Confirmed 02/28/19] Lysine 500 mg PO DAILY 02/28/19 [History Confirmed 02/28/19] PMH/Surg Hx/FS Hx/Imm Hx Previously Healthy: Yes - Surgical History Surgical History: Yes Surgery Procedure, Year, and Place: GALLSTONES REMOVED 2004, TUBAL , OVARIAN CYST REMOVED, LOSS OF . - Family History Known Family History: Positive: Diabetes, Other - breast and lung CA, Non- Contributory - Social History Alcohol Use: Occasionally Substance Use Type: None Smoking Status (MU): Never Smoked Tobacco Have You Smoked in the Last Year: No - Immunization History Most Recent Influenza Vaccination: not this season Most Recent Tetanus Shot: unknown Review of Systems All Other Systems Reviewed And Are Negative: Yes Constitutional: Positive: Chills, Fatigue Skin: Positive: Negative Respiratory: Positive: Negative Gastrointestinal: Positive: Abdominal Pain, Vomiting, Diarrhea, Nausea Musculoskeletal: Positive: Negative Neurological: Positive: Negative Is Patient Immunocompromised?: No Physical Exam Triage Information Reviewed: Yes Appearance: No Pain Distress, Well-Nourished, Ill-Appearing - mild Vital Signs Reviewed: Yes Eyes: Positive: Conjunctiva Clear Respiratory: Positive: Chest non-tender, Lungs clear, Normal breath sounds, No respiratory distress, No accessory muscle use. Negative: Respiratory distress, Crackles, Rhonchi, Stridor, Wheezing Cardiovascular: Positive: No Murmur, Tachycardia - minimal Abdomen Description: Positive: No Organomegaly, Soft, Other: - diffuse tenderness throughout entire abdomen with moderate palpation. Negative: Bruit, CVA Tenderness (R), CVA Tenderness (L), Distended, Guarding, Hepatomegaly, Splenomegaly Musculoskeletal Exam: Normal Psychological Exam: Normal Skin Exam: Normal Abd Pain Female Course/Dx - Course Course Of Treatment: gastroenteritis, likley viral - continue to take small sips of water to prevent dehydration frequently - Zofran as needed for nausea - Begin to introduce food slowly with bland foods first, such as saltine crackers, white bread. Gradually increased as tolerated. yogurt to re- populate gut when tolerated - Return with increased symptom, unable to hold down water, lightheadedness, weakness. - Differential Dx/Diagnosis Provider Diagnosis: Gastroenteritis Discharge ED - Sign-Out/Discharge Documenting (check all that apply): Patient Departure All imaging exams completed and their final reports reviewed: No Studies - Discharge Plan Condition: Good Disposition: HOME Prescriptions: Ondansetron ODT TAB* [Zofran 4 MG Odt TAB*] 4 mg PO Q8H PRN #10 tab.odt PRN Reason: Nausea Patient Education Materials: Diet for Stomach Ulcers and Gastritis (ED), Gastroenteritis (ED) Forms: *Work Release Referrals: Tessa Boss MD [Primary Care Provider] - Additional Instructions: - continue to take small sips of water to prevent dehydration frequently - Zofran as needed for nausea - Begin to introduce food slowly with bland foods first, such as saltine crackers, white bread. Gradually increased as tolerated. yogurt to re- populate gut when tolerated - Return with increased symptom, unable to hold down water, lightheadedness, weakness. - Billing Disposition and Condition Condition: GOOD Disposition: Home - Attestation Statements Provider Attestation: This patient was not seen by me I was available for consult Chart reviewed [id number]
[2019-02-28 15:47] VITALS: BP 101/70
[2019-02-28] MEDS ORDERED: Ondansetron ODT TAB* 4 MG SL ONE (16:02)
== END 2019-02-28 16:54 | disposition home or self-care (01) ==
LOC: UCCORT 14:04
DX: K52.9 Noninfective gastroenteritis and colitis, unspecified (principal); Z91.040 Latex allergy status; Z91.013 Allergy to seafood
CPT/HCPCS: 99212; A9270-GY; G0463